=== PATIENT | male | born 1955 | race Caucasian/White ===

== ENCOUNTER 2024-06-19 12:17 | Outpatient (CLI) | payer BC ==
[2024-06-19] MEDS ORDERED: Iopamidol 300 61% 100 ML VIAL FS ONE (14:50)
== END 2024-06-19 12:18 | disposition home or self-care (01) ==
LOC: CSHCT 12:17
PROVIDERS: ATTEND Internal Medicine Gastroenterology
DX: R10.9 Unspecified abdominal pain (principal); K56.609 Unspecified intestinal obstruction, unspecified as to partial versus complete obstruction; K21.9 Gastro-esophageal reflux disease without esophagitis; R05.3 Chronic cough; N28.1 Cyst of kidney, acquired
CPT/HCPCS: 36415; 74178; 82565